=== PATIENT | male | born 1935 | race Caucasian/White ===

== ENCOUNTER → 2016-07-24 | Outpatient (CLI) | payer MEDICARE, OTHER ==
[~2016-07-24] MED LIST: AMARYL4 MG PO; AMLODIPINE BESYL5 MG PO; ASPIR 8181 MG PO; COREG3.125 MG PO; DIOVAN160 MG PO; FISH OIL500 MG PO; GLUCOPHAGE1000 MG PO; LIPITOR20 MG PO; MULTIVITAMINS1 EAC1 PO; NITROSTAT0.4 MG SL
== END | disposition short-term general hospital (02) ==
LOC: CLPULM 10:02
DX: R06.02 Shortness of breath (principal); R94.5 Abnormal results of liver function studies; E11.9 Type 2 diabetes mellitus without complications; I10 Essential (primary) hypertension

== ENCOUNTER → 2016-10-22 | Outpatient (CLI) | payer MEDICARE, OTHER | END | disposition short-term general hospital (02) | LOC: CLCARD 09:07 | DX: I35.0 Nonrheumatic aortic (valve) stenosis (principal); I25.10 Atherosclerotic heart disease of native coronary artery without angina pectoris; I10 Essential (primary) hypertension; E78.5 Hyperlipidemia, unspecified; E11.9 Type 2 diabetes mellitus without complications; Z95.1 Presence of aortocoronary bypass graft ==